=== PATIENT | female | born 1975 | race African-American/Black ===

== ENCOUNTER 2018-11-01 15:04 | Emergency (ER) | payer OTHER ==
[~2018-11-01] VITALS: Ht 172.7 cm; Wt 99.8 kg
[2018-11-01] MEDS ORDERED: Motrin,Rufen800 MG PO (19:57)
[2018-11-01] MEDS ORDERED: CYCLOBENZAPRINE5 M3 PO (19:57)
== END 2018-11-01 19:59 | disposition home or self-care (01) ==
LOC: ED 15:04
DX: S16.1XXA Strain of muscle, fascia and tendon at neck level, initial encounter (principal); S80.02XA Contusion of left knee, initial encounter; S80.01XA Contusion of right knee, initial encounter; R51 Headache; V49.9XXA Car occupant (driver) (passenger) injured in unspecified traffic accident, initial encounter; Y93.89 Activity, other specified; Y92.89 Other specified places as the place of occurrence of the external cause; Y99.8 Other external cause status